=== PATIENT | female | born 1955 | race Hispanic/Latino ===

== ENCOUNTER → 2022-02-20 | Outpatient (CLI) | payer MEDICARE ==
[2022-02-20 14:58] LABS: CREATININE 0.8 mg/dL (0.5-1.5)
== END | disposition home or self-care (01) ==
LOC: LAB 14:08
PROVIDERS: ATTEND Otolaryngology Plastic Surgery within the Head & Neck
DX: H90.3 Sensorineural hearing loss, bilateral (principal)
CPT/HCPCS: 36415; 82565; 84520

== ENCOUNTER → 2022-02-27 | Outpatient (CLI) | payer MEDICARE ==
[~2022-02-27] MED LIST: GADOTERATE MEGLUMINE 10 MMOL/20 ML VIAL IV ONE
== END | disposition home or self-care (01) ==
LOC: RAH 07:45
PROVIDERS: ATTEND Otolaryngology Plastic Surgery within the Head & Neck
DX: G31.9 Degenerative disease of nervous system, unspecified (principal); H90.3 Sensorineural hearing loss, bilateral; Z98.42 Cataract extraction status, left eye; Z98.41 Cataract extraction status, right eye
CPT/HCPCS: 70553; A9575

== ENCOUNTER → 2024-01-19 | Outpatient (CLI) | payer MEDICARE ==
--- NOTE | 2024-01-21 07:53 | HMCSR ---
APPROVED REPORT EXAM: Two-dimensional and M-mode echocardiogram with Doppler and color Doppler. INDICATION ICD: R06.9 Unspecified abnormalities of breathing 2D Dimensions RVDd3.2 cmLVEF(%)67.4 (>50%)LVED Vol(simp.)103.0 mL IVSd0.7 (0.7-1.1cm)FS(%)38 %LVES Vol(simp.)45.0 mL LVDd5.1 (3.8-5.6cm)Ao Root(2D)2.4 (2.0-3.7cm)LVEF(%, simp.)56 % PWd0.7 (0.7-1.1cm)LVOT diam2.0 (1.8-2.4cm)LA ESV INDEX (BP)32.85 mL/m2 LVDs3.2 (2.5-4.0cm)IVC diam1.4 cm Deformation Strain Apical 4-15.2 % Apical 2-17.7 % Apical 3-16.2 % Global Strain-16.4 % Aortic Valve AoV Vmax1.3 m/Flip Peak GR6.9 mmHgLVOT Vmax1.2 m/s AoV VTI0.3 mAo Mean GR3.8 mmHgLVOT VTI0.26 m KIARA (VMAX)2.6 cm2AVA (VTI) 2.6 cm2 Mitral Valve MV E Vmax61.5 cm/sDECEL Urnl859 ms MV A Vmax74.0 cm/sP 1/2 T48 ms E/A ratio0.8MVA (PHT)4.6 cm2 MR Max PG46 mmHg TDI E/E' Medial7.2E/E' Lateral7.4 Pulmonary Valve PV Vmax1.0 m/sPV VTI0.20 mPV Mean GR2 mmHg PV Peak GR3.7 mmHgPI End Ann. Zac 0.7 cm/s Tricuspid Valve TR Vmax2.6 m/sRAP (EST) 3 swTwNHHE48.7 mmHg TR Peak GR26.7 mmHg Left Ventricle The left ventricle structure and function is normal. There is normal LV segmental wall motion. Normal left ventricular strain noted There is normal left ventricular wall thickness. LVEF is 55-60%. Grade 1 diastolic dysfunction Right Ventricle The right ventricle is normal size. The right ventricular systolic function is normal. Atria The left atrium size is normal. Atrial septal aneurysm is present. The right atrium size is normal. Aortic Valve Aortic valve is trileaflet. Aortic valve leaflets are sclerotic but open well. Trace aortic regurgita tion. There is no aortic valvular stenosis. Mitral Valve Mitral valve leaflets are mildly sclerotic but open well. Mitral regurgitation is trace. There is no mitral valve stenosis. Tricuspid Valve The tricuspid valve leaflets appear normal. There is trace to mild tricuspid regurgitation. Right tyler tricular systolic pressure is estimated at 30 mmHg. Pulmonic Valve The pulmonic valve leaflets are thin and pliable; valve motion is normal. There is trace to mild valv ular regurgitation. Great Vessels The aortic root is normal in size. The IVC is normal in size and collapses >50% with inspiration. Pericardium No pericardial effusion. Conclusion LVEF is 55-60%. Grade 1 diastolic dysfunction There is normal LV segmental wall motion. Trace aortic regurgitation. Mitral regurgitation is trace.
== END | disposition home or self-care (01) ==
LOC: SHCH 12:50
PROVIDERS: ATTEND Internal Medicine Cardiovascular Disease
DX: I08.8 Other rheumatic multiple valve diseases (principal); I25.3 Aneurysm of heart; R06.9 Unspecified abnormalities of breathing
CPT/HCPCS: 93306; 93356

== ENCOUNTER → 2024-03-01 | Outpatient (CLI) | payer MEDICARE | END | disposition home or self-care (01) | LOC: SHCH 12:55 | PROVIDERS: ATTEND Internal Medicine Cardiovascular Disease | DX: R60.0 Localized edema (principal); R06.9 Unspecified abnormalities of breathing; I10 Essential (primary) hypertension; E78.5 Hyperlipidemia, unspecified; I87.2 Venous insufficiency (chronic) (peripheral); I73.9 Peripheral vascular disease, unspecified | CPT/HCPCS: 93925; 93970 ==